=== PATIENT | male | born 1950 | race Caucasian/White ===

== ENCOUNTER → 2016-04-22 | Outpatient (CLI) | payer MEDICARE ==
[2016-04-22 08:27] LABS: Basophils # (A) 0.1 k/uL (0-0.2); Basophils % (A) 1 %; CH 29.6; Eosinophils # (A) 0.4 k/uL (0-0.7); Eosinophils % (A) 7 %; HDW 2.56; HGB 15.9 gm/dL (13.0-17.5); Luc # (Auto) 0.12; Luc % (Auto) 2; Lymphocytes # (A) 1.4 k/uL (1.0-4.8); Lymphocytes % (A) 23 %; MCH 28.7 pg (25.0-35.0); MCHC 31.8 g/dL (31.0-37.0); MCV 90.1 fL (80.0-100.0); Mean Platelet Volume 7.4; Monocytes # (A) 0.3 k/uL (0-1.0); Monocytes % (A) 5 %; Neutrophils # (A) 3.6 k/uL (1.3-7.7); Neutrophils % (A) 61 %; RBC 5.55 m/uL (4.30-5.90); RDW 13.2 % (11.5-15.5); WBC 5.9 k/uL (3.8-10.6); WBC (Perox) 5.81
[2016-04-22 09:25] LABS: ALT 39 U/L (21-72); AST 33 U/L (17-59); Alkaline Phosphatase 76 U/L (38-126); Anion Gap 10 mmol/L; Blood Urea Nitrogen 18 mg/dL (9-20); Calcium 9.3 mg/dL (8.4-10.2); Carbon Dioxide 28 mmol/L (22-30); Chloride 105 mmol/L (98-107); Cholesterol 190 mg/dL (<200); Glucose 100 mg/dL (74-99); HDL Cholesterol 54 mg/dL (40-60); Non-African American GFR(MDRD) >60 (>60 ml/min/1.73 sqM); Potassium 4.7 mmol/L (3.5-5.1); Sodium 143 mmol/L (137-145); Total Bilirubin 0.6 mg/dL (0.2-1.3); Triglycerides 85 mg/dL (<150)
== END | disposition home or self-care (01) ==
LOC: LABWHC1 07:58
PROVIDERS: ATTEND Family Medicine
DX: Z00.00 Encounter for general adult medical examination without abnormal findings (principal); G25.0 Essential tremor; I10 Essential (primary) hypertension; Z12.5 Encounter for screening for malignant neoplasm of prostate
CPT/HCPCS: 80061; 80053; 84443; 85025; 82306; 36415; G0103

== ENCOUNTER → 2017-04-24 | Outpatient (CLI) | payer MEDICARE ==
[2017-04-24 08:55] LABS: Basophils # (A) 0.1 k/uL (0-0.2); Basophils % (A) 1 %; Eosinophils # (A) 0.3 k/uL (0-0.7); Eosinophils % (A) 5 %; HGB 15.6 gm/dL (13.0-17.5); Lymphocytes # (A) 1.2 k/uL (1.0-4.8); Lymphocytes % (A) 20 %; MCH 28.5 pg (25.0-35.0); MCHC 32.4 g/dL (31.0-37.0); Mean Platelet Volume 7.1; Monocytes # (A) 0.3 k/uL (0-1.0); Monocytes % (A) 5 %; Neutrophils # (A) 4.1 k/uL (1.3-7.7); Neutrophils % (A) 67 %; Platelet Count 205 k/uL (150-450); RBC 5.46 m/uL (4.30-5.90); WBC 6.1 k/uL (3.8-10.6)
[2017-04-24 10:30] LABS: ALT 37 U/L (21-72); AST 35 U/L (17-59); Albumin 4.3 g/dL (3.5-5.0); Alkaline Phosphatase 87 U/L (38-126); Anion Gap 9 mmol/L; Blood Urea Nitrogen 22 mg/dL (9-20); Calcium 9.9 mg/dL (8.4-10.2); Carbon Dioxide 32 mmol/L (22-30); Chloride 105 mmol/L (98-107); Cholesterol 186 mg/dL (<200); Glucose 106 mg/dL (74-99); HDL Cholesterol 61 mg/dL (40-60); LDL Cholesterol,Calculated 112 mg/dL (0-99); Potassium 4.7 mmol/L (3.5-5.1); Sodium 146 mmol/L (137-145); Total Bilirubin 0.7 mg/dL (0.2-1.3); Total Protein 7.5 g/dL (6.3-8.2); Triglycerides 65 mg/dL (<150)
[2017-04-24 10:56] LABS: PSA Annual Screen 2.78 ng/mL (0.00-4.00)
== END | disposition home or self-care (01) ==
LOC: LABWHC1 08:15
PROVIDERS: ATTEND Family Medicine
DX: Z00.00 Encounter for general adult medical examination without abnormal findings (principal); G25.0 Essential tremor; I10 Essential (primary) hypertension; N52.9 Male erectile dysfunction, unspecified; Z12.5 Encounter for screening for malignant neoplasm of prostate
CPT/HCPCS: 80061; 80053; 84443; 85025; 82306; 36415; G0103

== ENCOUNTER → 2018-05-18 | Outpatient (CLI) | payer MEDICARE ==
[2018-05-18 08:38] LABS: Basophils # (A) 0.1 k/uL (0-0.2); Basophils % (A) 1 %; Eosinophils # (A) 0.5 k/uL (0-0.7); Eosinophils % (A) 9 %; HCT 48.7 % (39.0-53.0); HGB 15.6 gm/dL (13.0-17.5); Lymphocytes # (A) 1.2 k/uL (1.0-4.8); Lymphocytes % (A) 20 %; MCV 87.5 fL (80.0-100.0); Mean Platelet Volume 6.8; Monocytes # (A) 0.3 k/uL (0-1.0); Monocytes % (A) 6 %; Neutrophils # (A) 3.6 k/uL (1.3-7.7); Neutrophils % (A) 62 %; Platelet Count 176 k/uL (150-450); RBC 5.57 m/uL (4.30-5.90); RDW 13.5 % (11.5-15.5); WBC 5.8 k/uL (3.8-10.6)
[2018-05-18 16:29] LABS: Albumin 4.3 g/dL (3.80-4.90); Albumin/Globulin Ratio 1.59 (1.60-3.17); Anion Gap 7.3 mmol/L (4.00-12.00); Calcium 9.6 mg/dL (8.7-10.3); Carbon Dioxide 31.7 mmol/L (21.6-31.8); Globulin 2.7 g/dL (1.6-3.3); LDL Cholesterol,Calculated 123.6 mg/dL (0.0-131.0); Potassium 4.6 mmol/L (3.5-5.5); Total Bilirubin 0.6 mg/dL (0.3-1.2); VLDL Calculation 17.4 mg/dL (5.00-40.00)
== END | disposition home or self-care (01) ==
LOC: LABWHC1 08:02
PROVIDERS: ATTEND Family Medicine
DX: Z00.01 Encounter for general adult medical examination with abnormal findings (principal); K21.9 Gastro-esophageal reflux disease without esophagitis; N52.9 Male erectile dysfunction, unspecified; I10 Essential (primary) hypertension; G25.0 Essential tremor; Z13.29 Encounter for screening for other suspected endocrine disorder; Z12.5 Encounter for screening for malignant neoplasm of prostate
CPT/HCPCS: 36415; 80053; 80061; 82306; 84153; 85025

== ENCOUNTER → 2019-05-23 | Outpatient (CLI) | payer MEDICARE ==
[2019-05-23 08:16] LABS: Basophils % (A) 1 %; Eosinophils # (A) 0.5 k/uL (0-0.7); Eosinophils % (A) 7 %; HCT 47.9 % (39.0-53.0); HGB 15.4 gm/dL (13.0-17.5); Lymphocytes # (A) 1.4 k/uL (1.0-4.8); Lymphocytes % (A) 21 %; MCH 28.5 pg (25.0-35.0); MCHC 32.2 g/dL (31.0-37.0); MCV 88.4 fL (80.0-100.0); Mean Platelet Volume 7.4; Monocytes # (A) 0.4 k/uL (0-1.0); Monocytes % (A) 5 %; Neutrophils # (A) 4.4 k/uL (1.3-7.7); Neutrophils % (A) 65 %; Platelet Count 186 k/uL (150-450); RBC 5.42 m/uL (4.30-5.90); RDW 13.1 % (11.5-15.5); WBC 6.9 k/uL (3.8-10.6)
[2019-05-23 16:26] LABS: African American GFR (CKD) 89.2 (60.0-200.0); Albumin 4.4 g/dL (3.80-4.90); Albumin/Globulin Ratio 1.83 (1.60-3.17); Anion Gap 4.3 mmol/L (4.00-12.00); Calcium 9.3 mg/dL (8.7-10.3); Carbon Dioxide 33.7 mmol/L (21.6-31.8); Globulin 2.4 g/dL (1.6-3.3); Potassium 4.4 mmol/L (3.5-5.5); Total Bilirubin 0.5 mg/dL (0.3-1.2); Total Protein 6.8 g/dL (6.2-8.2)
== END | disposition home or self-care (01) ==
LOC: LABWHC1 07:52
PROVIDERS: ATTEND Family Medicine
DX: Z12.5 Encounter for screening for malignant neoplasm of prostate (principal); I10 Essential (primary) hypertension; M85.80 Other specified disorders of bone density and structure, unspecified site
CPT/HCPCS: 36415; 80053; 82306; 84153; 84154; 85025

== ENCOUNTER → 2019-06-05 | Outpatient (CLI) | payer MEDICARE ==
--- NOTE | 2019-06-05 16:01 | US ---
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 GLAND SIZE: Right Lobe: 4.6 x 1.6 x 1.6 cm Overall Parenchyma: homogenous Left Lobe: 4.6 x 1.1 x 1.3 cm Overall Parenchyma: homogeneous Isthmus Thickness: 0.4 cm NODULES RIGHT: # of nodules measured on right: 0 LEFT: # of nodules measured on left: 0 ISTHMUS: # of nodules measured in the isthmus: 0 Bilateral neck scanned, no evidence of lymphadenopathy. Thyroid echotexture is homogenous and symmetric. IMPRESSION: Thyroid size as described.
--- NOTE | 2019-06-05 20:36 | ECHOF ---
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 This was a technically adequate study. The left ventricular size is normal. There is moderate concentric left ventricular hypertrophy. O verall left ventricular systolic function is normal with, an EF between 55 - 60 %. The diastolic fi lling pattern is normal for the age of the patient 10.61. The right ventricle is mildly enlarged. Normal LA size by volume 22+/-6 ml/m2. The right atrial size is normal. Interatrial and interventricular septum intact. There is no evidence of aortic regurgitation. There is no evidence of aortic stenosis. There is trace mitral regurgitation. Mild tricuspid regurgitation present. There is no evidence of pulmonary hypertension. The right v entricular systolic pressure, as measured by Doppler, is 27.57mmHg. Trace/mild (physiologic) pulmonic regurgitation. The aortic root size is normal. IVC Not well visulized. There is no pericardial effusion. CONCLUSIONS -------- 1. Sinus rhythm. 2. This was a technically adequate study. 3. The left ventricular size is normal. 4. Overall left ventricular systolic function is normal with, an EF between 55 - 60 %. 5. The diastolic filling pattern is normal for the age of the patient 10.61 6. The right ventricle is mildly enlarged. 7. Normal LA size by volume 22+/-6 ml/m2. 8. The right atrial size is normal. 9. Interatrial and interventricular septum intact. 10. There is no evidence of aortic regurgitation. 11. There is no evidence of aortic stenosis. 12. There is trace mitral regurgitation. 13. Mild tricuspid regurgitation present. 14. There is no evidence of pulmonary hypertension. 15. The right ventricular systolic pressure, as measured by Doppler, is 27.57mmHg. 16. Trace/mild (physiologic) pulmonic regurgitation. 17. The aortic root size is normal. 18. IVC Not well visulized. 19. There is no pericardial effusion. [employer] TEACHER: Bev Zuñiga RDCS
== END | disposition home or self-care (01) ==
LOC: RADUSMAIN 14:53
PROVIDERS: ATTEND Family Medicine
DX: I07.1 Rheumatic tricuspid insufficiency (principal); E04.1 Nontoxic single thyroid nodule
CPT/HCPCS: 76536; 93306

== ENCOUNTER → 2019-07-03 | Outpatient (CLI) | payer MEDICARE ==
[2019-07-03 16:12] LABS: Chol/HDL Ratio 3.19
[2019-07-03 16:22] LABS: T4, Free (Free Thyroxine) 1.3 ng/dL (0.80-1.80)
== END | disposition home or self-care (01) ==
LOC: LABWHC1 07:28
PROVIDERS: ATTEND Family Medicine
DX: Z00.01 Encounter for general adult medical examination with abnormal findings (principal); Z12.11 Encounter for screening for malignant neoplasm of colon; I10 Essential (primary) hypertension; E04.1 Nontoxic single thyroid nodule; R97.20 Elevated prostate specific antigen [PSA]
CPT/HCPCS: 36415; 80061; 84153; 84154; 84439; 84443

== ENCOUNTER → 2020-01-21 | Outpatient (CLI) | payer MEDICARE | END | disposition home or self-care (01) | LOC: LABWHC1 09:36 | PROVIDERS: ATTEND Urology | DX: R97.20 Elevated prostate specific antigen [PSA] (principal) | CPT/HCPCS: 36415; 84153 ==

== ENCOUNTER → 2020-05-20 | Outpatient (CLI) | payer MEDICARE ==
[2020-05-20 11:17] LABS: Basophils # (A) 0.05 X 10*3/uL (0.00-0.10); Basophils % (A) 0.9 %; Eosinophils # (A) 0.42 X 10*3/uL (0.04-0.35); Eosinophils % (A) 7.2 %; HCT 47.8 % (39.6-50.0); HGB 15.9 g/dL (13.0-17.0); Lymphocytes # (A) 1.24 X 10*3/uL (0.90-5.00); Lymphocytes % (A) 21.3 %; MCH 29.1 pg (27.0-32.0); MCHC 33.3 g/dL (32.0-37.0); MCV 87.5 fL (80.0-97.0); Mean Platelet Volume 10.2 fL (9.5-12.2); Monocytes # (A) 0.39 X 10*3/uL (0.20-1.00); Monocytes % (A) 6.7 %; Neutrophils % (A) 63.6 %; Platelet Count 186 X 10*3/uL (140-440); RBC 5.46 X 10*6/uL (4.40-5.60); WBC 5.82 X 10*3/uL (4.50-10.00)
[2020-05-20 12:22] LABS: African American GFR (CKD) 100.6 (60.0-200.0); Albumin 4.6 g/dL (3.80-4.90); Albumin/Globulin Ratio 1.92 (1.60-3.17); Anion Gap 8.8 mmol/L (4.00-12.00); BUN/Creat Ratio 22.22 Ratio (12.00-20.00); Calcium 9.4 mg/dL (8.7-10.3); Carbon Dioxide 29.2 mmol/L (21.6-31.8); Chol/HDL Ratio 3.22; Globulin 2.4 g/dL (1.6-3.3); LDL Cholesterol,Calculated 119.2 mg/dL (0.0-131.0); Non-African American GFR(CKD) 86.8 (60.0-200.0); Potassium 4.5 mmol/L (3.5-5.5); Total Bilirubin 0.5 mg/dL (0.3-1.2); VLDL Calculation 13.8 mg/dL (5.00-40.00)
== END | disposition home or self-care (01) ==
LOC: LABWHC1 08:08
PROVIDERS: ATTEND Family Medicine
DX: I10 Essential (primary) hypertension (principal); M85.80 Other specified disorders of bone density and structure, unspecified site; Z12.5 Encounter for screening for malignant neoplasm of prostate; Z13.220 Encounter for screening for lipoid disorders
CPT/HCPCS: 36415; 80053; 80061; 82306; 85025

== ENCOUNTER → 2021-03-16 | Outpatient (CLI) | payer MEDICARE | END | disposition home or self-care (01) | LOC: LABWHC1 09:08 | PROVIDERS: ATTEND Urology | DX: R97.20 Elevated prostate specific antigen [PSA] (principal) | CPT/HCPCS: 36415; 84153 ==

== ENCOUNTER → 2022-03-29 | Outpatient (CLI) | payer MEDICARE | END | disposition home or self-care (01) | LOC: LABWHC1 10:42 | PROVIDERS: ATTEND Urology | DX: R97.20 Elevated prostate specific antigen [PSA] (principal) | CPT/HCPCS: 36415; 84153 ==

== ENCOUNTER → 2023-05-19 | Outpatient (CLI) | payer MEDICARE ==
[2023-05-19 13:20] LABS: Basophils # (A) 0.08 X 10*3/uL (0.00-0.10); Basophils % (A) 1.3 %; Eosinophils # (A) 0.44 X 10*3/uL (0.04-0.35); HCT 46.8 % (39.6-50.0); HGB 15.3 g/dL (13.0-17.0); Lymphocytes # (A) 1.23 X 10*3/uL (0.90-5.00); Lymphocytes % (A) 19.7 %; MCH 28.3 pg (27.0-32.0); MCHC 32.7 g/dL (32.0-37.0); MCV 86.7 FL (80.0-97.0); Mean Platelet Volume 10.4 FL (9.5-12.2); Monocytes # (A) 0.44 X 10*3/uL (0.20-1.00); NRBC Per 100 WBC 0 X 10*3/uL (0.00-0.01); Neutrophils # (A) 4.05 X 10*3/uL (1.80-7.70); Neutrophils % (A) 64.8 %; Platelet Count 201 X 10*3/uL (140-440); RDW 13.2 % (11.5-14.5); WBC 6.25 X 10*3/uL (4.50-10.00)
[2023-05-19 13:53] LABS: ALT 18 U/L (10-49); AST 29 U/L (14-35); Albumin 4.2 g/dL (3.8-4.9); Albumin/Globulin Ratio 1.62 Ratio (1.60-3.17); Alkaline Phosphatase 79 U/L (41-126); BUN/Creat Ratio 18.56 Ratio (12.00-20.00); Blood Urea Nitrogen 16.7 mg/dL (9.0-27.0); Calcium 9.7 mg/dL (8.7-10.3); Carbon Dioxide 27.1 mmol/L (21.6-31.8); Chloride 103 mmol/L (96-109); Globulin 2.6 g/dL (1.6-3.3); Glucose 104 mg/dL (70-110); LDL Cholesterol,Calculated 113.7 mg/dL (0.0-131.0); Potassium 4.5 mmol/L (3.5-5.5); Prostate Specific Antigen 4.39 ng/mL (0.000-6.500); Sodium 140 mmol/L (135-145); T4, Free (Free Thyroxine) 1.35 ng/dL (0.80-1.80); Total Bilirubin 0.5 mg/dL (0.3-1.2); Total Protein 6.8 g/dL (6.2-8.2); VLDL Calculation 12.88 mg/dL (5.00-40.00)
== END | disposition home or self-care (01) ==
LOC: LABWHC1 08:15
PROVIDERS: ATTEND Family Medicine
DX: Z00.00 Encounter for general adult medical examination without abnormal findings (principal); I10 Essential (primary) hypertension; K21.9 Gastro-esophageal reflux disease without esophagitis; N40.0 Benign prostatic hyperplasia without lower urinary tract symptoms; R97.20 Elevated prostate specific antigen [PSA]
CPT/HCPCS: 36415; 80053; 80061; 82306; 83036; 84153; 84439; 84443; 85025

== ENCOUNTER → 2024-04-11 | Outpatient (CLI) | payer MEDICARE ==
[2024-04-11 15:27] LABS: Basophils # (A) 0.05 X 10*3/uL (0.00-0.10); Basophils % (A) 0.7 %; Eosinophils # (A) 0.24 X 10*3/uL (0.04-0.35); Eosinophils % (A) 3.6 %; HCT 45.8 % (39.6-50.0); HGB 15.1 g/dL (13.0-17.0); Lymphocytes # (A) 1.41 X 10*3/uL (0.90-5.00); Lymphocytes % (A) 21.1 %; MCH 28.7 pg (27.0-32.0); MCV 86.9 FL (80.0-97.0); Mean Platelet Volume 10.1 FL (9.5-12.2); Monocytes # (A) 0.54 X 10*3/uL (0.20-1.00); Monocytes % (A) 8.1 %; NRBC Per 100 WBC 0 X 10*3/uL (0.00-0.01); Neutrophils # (A) 4.43 X 10*3/uL (1.80-7.70); Neutrophils % (A) 66.4 %; Platelet Count 196 X 10*3/uL (140-440); RBC 5.27 X 10*6/uL (4.40-5.60); RDW 13.5 % (11.5-14.5); WBC 6.68 X 10*3/uL (4.50-10.00)
[2024-04-11 16:13] LABS: Chol/HDL Ratio 3.47 Ratio; LDL Cholesterol,Calculated 128.2 mg/dL (0.0-131.0)
[2024-04-11 16:14] LABS: ALT 23 U/L (10-49); AST 29 U/L (14-35); Albumin 4.3 g/dL (3.8-4.9); Albumin/Globulin Ratio 1.65 Ratio (1.60-3.17); Alkaline Phosphatase 75 U/L (41-126); Calcium 9.4 mg/dL (8.7-10.3); Carbon Dioxide 29.1 mmol/L (21.6-31.8); Chloride 106 mmol/L (96-109); Globulin 2.6 g/dL (1.6-3.3); Glucose 86 mg/dL (70-110); Potassium 4.2 mmol/L (3.5-5.5); Sodium 145 mmol/L (135-145); T4, Free (Free Thyroxine) 1.12 ng/dL (0.80-1.80); Total Bilirubin 0.4 mg/dL (0.3-1.2); Total Protein 6.9 g/dL (6.2-8.2)
== END | disposition home or self-care (01) ==
LOC: LABWHC1 08:32
PROVIDERS: ATTEND Family Medicine
DX: Z00.00 Encounter for general adult medical examination without abnormal findings (principal); I10 Essential (primary) hypertension; E55.9 Vitamin D deficiency, unspecified; K21.9 Gastro-esophageal reflux disease without esophagitis
CPT/HCPCS: 36415; 80053; 80061; 82306; 83036; 84439; 84443; 85025

== ENCOUNTER 2024-08-03 21:52 | Observation (INO) | payer MEDICARE ==
--- NOTE | 2024-08-03 22:26 | ED ---
GI Bleed HPI - General Chief complaint: GI Bleed Stated complaint: GI bleed Time Seen by Provider: 08/03/24 22:03 Source: patient, RN notes reviewed Mode of arrival: ambulatory Limitations: no limitations - History of Present Illness Initial comments: This is a 73-year-old male with history of prostate disorder, GERD and hypertension presenting for rectal bleeding x 1 hour. Patient states he was relaxing at home when he suddenly felt a warm fluid from his rectum, discovering he passed a large amount of red blood with ongoing bleeding upon arrival at ER. Patient denies use of blood thinners, only occasionally uses naproxen as needed. Endorses receiving colonoscopy in 2020 without abnormal findings. Denies fever, chills, dizziness, altered LOC, chest pain, dyspnea, abdominal pain, N/V/D, urinary symptoms. Denies history or known cause of rectal bleeding occurring today. MD complaint: gross hematochezia Onset/Timin -: hour(s) Time: 20:45 Quality: painless Consistency: constant Associated Symptoms: denies other symptoms Treatments Prior to Arrival: none - Related Data Allergies Allergy/AdvReac Type Severity Reaction Status Date / Time Sulfa (Sulfonamide Allergy Anaphylaxis Verified 08/03/24 21:58 Antibiotics) Review of Systems ROS Statement: Those systems with pertinent positive or pertinent negative responses have been documented in the HPI. ROS Other: All systems not noted in ROS Statement are negative. Past Medical History Past Medical History: GERD/Reflux, Hypertension, Prostate Disorder Additional Past Medical History / Comment(s): arthritis History of Any Multi-Drug Resistant Organisms: None Reported Past Surgical History: Joint Replacement, Orthopedic Surgery Additional Past Surgical History / Comment(s): Bilateral knee replacement Past Psychological History: No Psychological Hx Reported Smoking Status: Never smoker Past Alcohol Use History: None Reported Past Drug Use History: None Reported General Exam Limitations: no limitations General appearance: alert, in no apparent distress Head exam: Present: atraumatic, normocephalic, normal inspection Eye exam: Present: normal appearance, PERRL, EOMI. Absent: scleral icterus, conjunctival injection, periorbital swelling ENT exam: Present: normal exam, mucous membranes moist Neck exam: Present: normal inspection. Absent: tenderness, meningismus, lymphadenopathy Respiratory exam: Present: normal lung sounds bilaterally. Absent: respiratory distress, wheezes, rales, rhonchi, stridor Cardiovascular Exam: Present: regular rate, normal rhythm, normal heart sounds. Absent: systolic murmur, diastolic murmur, rubs, gallop, clicks GI/Abdominal exam: Present: soft, normal bowel sounds. Absent: distended, tenderness, guarding, rebound, rigid Rectal exam: Present: decreased rectal tone, heme (+) stool, bloody stool. Ab sent: hemorrhoids, tenderness, normal prostate Extremities exam: Present: normal inspection, full ROM, normal capillary refill. Absent: tenderness, pedal edema, joint swelling, calf tenderness Back exam: Present: normal inspection Neurological exam: Present: alert, oriented X3, CN II-XII intact Psychiatric exam: Present: normal affect, normal mood Skin exam: Present: warm, dry, intact, normal color. Absent: rash Course Vital Signs 08/03/24 08/04/24 08/04/24 21:54 00:13 02:45 Temperature 98.2 F Pulse Rate 98 78 61 Respiratory 18 16 18 Rate Blood Pressure 150/82 133/85 162/81 O2 Sat by Pulse 96 99 98 Oximetry Medical Decision Making - Medical Decision Making Was pt. sent in by a medical professional or institution (, PA, DEPUTY CONTROLLER, urgent care, hospital, or prison...) When possible be specific @ -No Did you speak to anyone other than the patient for history (EMS, parent, family, police, friend...)? What history was obtained from this source @ - provided a portion of HPI Did you review nursing and triage notes (agree or disagree)? Why? @ -I reviewed and agree with nursing and triage notes Were old charts reviewed (outside hosp., previous admission, EMS record, old EKG, old radiological studies, urgent care reports/EKG's, prison records)? Report findings @ -No old charts were reviewed Differential Diagnosis (chest pain, altered mental status, abdominal pain women, abdominal pain men, vaginal bleeding, weakness, fever, dyspnea, syncope, headache, dizziness, GI bleed, back pain, seizure, CVA, palpatations, mental health, musculoskeletal)? @ -Differential GI Bleed: Esophageal varices, aortoenteric fistula, Lia-Arzate, gastritis, peptic ulcer disease, diverticulosis, inflammatory bowel disease, hemorrhoids, fissure, colitis, malignancy, Meckel's diverticulum, this is not meant to be an all- inclusive list. EKG interpreted by me (3pts min.). @ -Not done X-rays interpreted by me (1pt min.). @ -None done CT interpreted by me (1pt min.). @ -Abdomen CTA shows no indication of active hemorrhage U/S interpreted by me (1pt. min.). @ -None done What testing was considered but not performed or refused? (CT, X-rays, U/S, labs)? Why? @ -None What meds were considered but not given or refused? Why? @ -None Did you discuss the management of the patient with other professionals (professionals i.e. Dr., PA, DEPUTY CONTROLLER, lab, RT, psych nurse, elementary school social worker, product development, teacher, account officer, catalytic case operator)? Give summary @ -No Was smoking cessation discussed for >3mins.? @ -No Was critical care preformed (if so, how long)? @ -No Were there social determinants of health that impacted care today? How? (Homelessness, low income, unemployed, alcoholism, drug addiction, transportation, low edu. Level, literacy, decrease access to med. care, custodial, rehab)? @ -No Was there de-escalation of care discussed even if they declined (Discuss DNR or withdrawal of care, Hospice)? DNR status @ -No What co-morbidities impacted this encounter? (DM, HTN, Smoking, COPD, CAD, Cancer, CVA, ARF, Chemo, Hep., AIDS, mental health diagnosis, sleep apnea, morbid obesity)? @ -None Was patient admitted / discharged? Hospital course, mention meds given and route, prescriptions, significant lab abnormalities, going to OR and other pertinent info. @ -Lab work shows hemoglobin 14.3, hyperglycemia 182 with normal lactic acid and positive stool occult blood. Abdomen/pelvic CTA is unremarkable no indication of active hemorrhage. Patient provided IV LR. Spoke to Dr. Kuhn from [facility] for obs admission, advising consult to Dr. Gutierrez. Discussed patient with Dr. Bhatia. Undiagnosed new problem with uncertain prognosis? @ -Hematochezia Drug Therapy requiring intensive monitoring for toxicity (Heparin, Nitro, Insu shahab, Cardizem)? @ -No Were any procedures done? @ -No Diagnosis/symptom? @ -Hematochezia Acute, or Chronic, or Acute on Chronic? @ -Acute Uncomplicated (without systemic symptoms) or Complicated (systemic symptoms)? @ -Uncomplicated Side effects of treatment? @ -No Exacerbation, Progression, or Severe Exacerbation? @ -No Poses a threat to life or bodily function? How? (Chest pain, USA, CT, pneumonia, PE, COPD, DKA, ARF, appy, cholecystitis, CVA, Diverticulitis, Homicidal, Suicidal, threat to staff... and all critical care pts) @ -Hematochezia, exsanguination - Lab Data Result diagrams: 08/03/24 22:20 08/03/24 22:20 Lab Results 08/03/24 08/03/24 08/03/24 Range/Units 22:15 22:20 22:20 WBC 5.95 (4.50-10.00) 10*3/uL RBC 4.89 (4.40-5.60) 10*6/uL Hgb 14.3 (13.0-17.0) g/dL Hct 42.3 (39.6-50.0) % MCV 86.5 (80.0-97.0) fL MCH 29.2 (27.0-32.0) pg MCHC 33.8 (32.0-37.0) g/dL Plt Count 193 (140-440) 10*3/uL MPV 10.1 (9.5-12.2) fL Immature Gran % (Auto) 0.3 % Neutrophils % 56.2 % Lymphocytes % 26.4 % Monocytes % 8.2 % Eosinophils % 7.9 % Basophils % 1.0 % Immature Gran # 0.02 (0.00-0.04) 10*3/uL Neutrophils # 3.34 (1.80-7.70) 10*3/uL Lymphocytes # 1.57 (0.90-5.00) 10*3/uL Monocytes # 0.49 (0.20-1.00) 10*3/uL Eosinophils # 0.47 H (0.04-0.35) 10*3/uL Basophils # 0.06 (0.00-0.10) 10*3/uL PT (10.0-12.5) sec INR (<1.2) APTT (22.0-30.0) sec Sodium (137-145) mmol/L Potassium (3.5-5.1) mmol/L Chloride (98-107) mmol/L Carbon Dioxide (22-30) mmol/L Anion Gap mmol/L BUN (9-20) mg/dL Creatinine (0.66-1.25) mg/dL Est GFR (CKD-EPI)AfAm (>60 ml/min/1.73 sqM) Est GFR (CKD-EPI)NonAf (>60 ml/min/1.73 sqM) Glucose (74-99) mg/dL Plasma Lactic Acid David (0.7-2.0) mmol/L Calcium (8.4-10.2) mg/dL Total Bilirubin (0.2-1.3) mg/dL AST (17-59) U/L ALT (4-49) U/L Alkaline Phosphatase (38-126) U/L Total Protein (6.3-8.2) g/dL Albumin (3.5-5.0) g/dL Stool Occult Blood Positive (Negative) Blood Type O Positive Blood Type Confirm Blood Type Recheck No Previous Record Bld Type Recheck Status CABO Indicated Antibody Screen NEGATIVE Spec Expiration Date 08/06/2024 - 231408/03/24 08/03/24 08/03/24 Range/Units 22:20 22:20 23:35 WBC (4.50-10.00) 10*3/uL RBC (4.40-5.60) 10*6/uL Hgb (13.0-17.0) g/dL Hct (39.6-50.0) % MCV (80.0-97.0) fL MCH (27.0-32.0) pg MCHC (32.0-37.0) g/dL Plt Count (140-440) 10*3/uL MPV (9.5-12.2) fL Immature Gran % (Auto) % Neutrophils % % Lymphocytes % % Monocytes % % Eosinophils % % Basophils % % Immature Gran # (0.00-0.04) 10*3/uL Neutrophils # (1.80-7.70) 10*3/uL Lymphocytes # (0.90-5.00) 10*3/uL Monocytes # (0.20-1.00) 10*3/uL Eosinophils # (0.04-0.35) 10*3/uL Basophils # (0.00-0.10) 10*3/uL PT 10.7 (10.0-12.5) sec INR 1.0 (<1.2) APTT 22.9 (22.0-30.0) sec Sodium 140 (137-145) mmol/L Potassium 3.7 (3.5-5.1) mmol/L Chloride 105 (98-107) mmol/L Carbon Dioxide 24 (22-30) mmol/L Anion Gap 11 mmol/L BUN 20 (9-20) mg/dL Creatinine 0.90 (0.66-1.25) mg/dL Est GFR (CKD-EPI)AfAm >90 (>60 ml/min/1.73 sqM) Est GFR (CKD-EPI)NonAf 84 (>60 ml/min/1.73 sqM) Glucose 182 H (74-99) mg/dL Plasma Lactic Acid David 1.5 (0.7-2.0) mmol/L Calcium 9.7 (8.4-10.2) mg/dL Total Bilirubin 0.4 (0.2-1.3) mg/dL AST 35 (17-59) U/L ALT 29 (4-49) U/L Alkaline Phosphatase 83 (38-126) U/L Total Protein 6.8 (6.3-8.2) g/dL Albumin 4.0 (3.5-5.0) g/dL Stool Occult Blood (Negative) Blood Type Blood Type Confirm Blood Type Recheck Bld Type Recheck Status Antibody Screen Spec Expiration Date 08/03/24 Range/Units 23:46 WBC (4.50-10.00) 10*3/uL RBC (4.40-5.60) 10*6/uL Hgb (13.0-17.0) g/dL Hct (39.6-50.0) % MCV (80.0-97.0) fL MCH (27.0-32.0) pg MCHC (32.0-37.0) g/dL Plt Count (140-440) 10*3/uL MPV (9.5-12.2) fL Immature Gran % (Auto) % Neutrophils % % Lymphocytes % % Monocytes % % Eosinophils % % Basophils % % Immature Gran # (0.00-0.04) 10*3/uL Neutrophils # (1.80-7.70) 10*3/uL Lymphocytes # (0.90-5.00) 10*3/uL Monocytes # (0.20-1.00) 10*3/uL Eosinophils # (0.04-0.35) 10*3/uL Basophils # (0.00-0.10) 10*3/uL PT (10.0-12.5) sec INR (<1.2) APTT (22.0-30.0) sec Sodium (137-145) mmol/L Potassium (3.5-5.1) mmol/L Chloride (98-107) mmol/L Carbon Dioxide (22-30) mmol/L Anion Gap mmol/L BUN (9-20) mg/dL Creatinine (0.66-1.25) mg/dL Est GFR (CKD-EPI)AfAm (>60 ml/min/1.73 sqM) Est GFR (CKD-EPI)NonAf (>60 ml/min/1.73 sqM) Glucose (74-99) mg/dL Plasma Lactic Acid David (0.7-2.0) mmol/L Calcium (8.4-10.2) mg/dL Total Bilirubin (0.2-1.3) mg/dL AST (17-59) U/L ALT (4-49) U/L Alkaline Phosphatase (38-126) U/L Total Protein (6.3-8.2) g/dL Albumin (3.5-5.0) g/dL Stool Occult Blood (Negative) Blood Type Blood Type Confirm O Positive Blood Type Recheck Bld Type Recheck Status Antibody Screen Spec Expiration Date Disposition Clinical Impression: Hematochezia Disposition: ADMITTED IP TO THIS [facility] Condition: Good Is patient prescribed a controlled substance at d/c from ED?: No Time of Disposition: 02: Decision Date: 08/04/24 Decision Time: 02:30
[2024-08-03 22:38] LABS: Basophils # (A) 0.06 10*3/uL (0.00-0.10); Eosinophils # (A) 0.47 10*3/uL (0.04-0.35); Eosinophils % (A) 7.9 %; HCT 42.3 % (39.6-50.0); HGB 14.3 g/dL (13.0-17.0); Lymphocytes # (A) 1.57 10*3/uL (0.90-5.00); Lymphocytes % (A) 26.4 %; MCH 29.2 pg (27.0-32.0); MCHC 33.8 g/dL (32.0-37.0); MCV 86.5 fL (80.0-97.0); Mean Platelet Volume 10.1 fL (9.5-12.2); Monocytes # (A) 0.49 10*3/uL (0.20-1.00); Monocytes % (A) 8.2 %; Neutrophils # (A) 3.34 10*3/uL (1.80-7.70); Neutrophils % (A) 56.2 %; Platelet Count 193 10*3/uL (140-440); RBC 4.89 10*6/uL (4.40-5.60); RDW 13.2 % (11.5-14.5); WBC 5.95 10*3/uL (4.50-10.00)
[2024-08-03 23:09] LABS: Partial Thromboplastin Time 22.9 sec (22.0-30.0); Prothrombin Time 10.7 sec (10.0-12.5)
[2024-08-03 23:18] LABS: Chloride 105 mmol/L (98-107); Glucose 182 mg/dL (74-99); Potassium 3.7 mmol/L (3.5-5.1); Sodium 140 mmol/L (137-145); Total Protein 6.8 g/dL (6.3-8.2)
[2024-08-03 23:19] LABS: ALT 29 U/L (4-49); AST 35 U/L (17-59); African American GFR (CKD) >90 (>60 ml/min/1.73 sqM); Alkaline Phosphatase 83 U/L (38-126); Anion Gap 11 mmol/L; Blood Urea Nitrogen 20 mg/dL (9-20); Calcium 9.7 mg/dL (8.4-10.2); Carbon Dioxide 24 mmol/L (22-30); Non-African American GFR(CKD) 84 (>60 ml/min/1.73 sqM); Total Bilirubin 0.4 mg/dL (0.2-1.3)
[2024-08-04] MEDS: LACTATED RINGERS 500 ML IV ONE (01:36)
--- NOTE | 2024-08-04 02:07 | CT ---
EXAM: CT Angiography Abdomen and Pelvis With Intravenous Contrast CLINICAL HISTORY: Rectal bleeding TECHNIQUE: Axial computed tomographic angiography images of the abdomen and pelvis with intravenous contrast. CTDI is 42 mGy and DLP is 1815 mGy-cm. This CT exam was performed using one or more of the following dose reduction techniques: automated exposure control, adjustment of the mA and/or kV according to patient size, and/or use of iterative reconstruction technique. 3D and MIP reconstructed images were created and reviewed. COMPARISON: No relevant prior studies available. FINDINGS: VASCULATURE: Aorta: No acute abnormality. No abdominal aortic aneurysm. No dissection. Celiac trunk and mesenteric arteries: No acute abnormality. No occlusion or significant stenosis. Renal arteries: No acute abnormality. No occlusion or significant stenosis. Iliac arteries: No acute abnormality. No occlusion or significant stenosis. Lung bases: Right basilar peripheral lung cyst. No mass. No consolidation. ABDOMEN: Liver: Unremarkable. No mass. Gallbladder and bile ducts: Unremarkable. No calcified stones. No ductal dilation. Pancreas: Unremarkable. No ductal dilation. No mass. Spleen: Unremarkable. No splenomegaly. Adrenals: Unremarkable. No mass. Kidneys and ureters: Unremarkable. No hydronephrosis. No solid mass. Stomach and bowel: Small hiatal hernia. No bowel obstruction or ileus. Abundant stool throughout the colon. Sigmoid colon diverticuli without evidence for acute diverticulitis. No perirectal infiltration or collection. No contrast extravasation into bowel including on delayed images. PELVIS: Appendix: No findings to suggest acute appendicitis. Bladder: Well distended. No mass. Reproductive: Prominent prostate gland 4.6 x 5.9 cm. ABDOMEN and PELVIS: Intraperitoneal space: Unremarkable. No significant fluid collection. No free air. Bones/joints: No acute fracture. Degenerative changes of the spine. Soft tissues: Unremarkable. Lymph nodes: Unremarkable. No enlarged lymph nodes. IMPRESSION: Unremarkable CT angiogram of the abdomen and pelvis. No contrast extravasation within bowel to indicate active hemorrhage. No perirectal infiltration or collection. Sigmoid colon diverticulosis without evidence for acute diverticulitis. Abundant stool throughout the colon. Senescent changes.
[2024-08-04] MEDS ORDERED: ONDANSETRON 4 MG/2 ML VIAL IVP PRN (02:28)
[2024-08-04] MEDS ORDERED: HYDROmorphone 0.5 MG/0.5 ML SYRINGE IVP PRN (02:28)
[2024-08-04] MEDS ORDERED: NALOXONE 0.4 MG/ML 1 ML VIAL IV PRN (02:28)
[2024-08-04] MEDS ORDERED: ACETAMINOPHEN TAB 325 MG TAB PO PRN (02:28)
[2024-08-04 10:13] LABS: HCT 40.7 % (39.6-50.0); HGB 13.5 g/dL (13.0-17.0); MCH 29.3 pg (27.0-32.0); MCHC 33.2 g/dL (32.0-37.0); MCV 88.3 fL (80.0-97.0); Mean Platelet Volume 10.1 fL (9.5-12.2); Platelet Count 176 10*3/uL (140-440); RBC 4.61 10*6/uL (4.40-5.60); RDW 13.4 % (11.5-14.5); WBC 5.61 10*3/uL (4.50-10.00)
--- NOTE | 2024-08-04 10:22 | P.GSCN ---
History of Present Illness Consult date: 08/04/24 History of present illness: CHIEF COMPLAINT: GI bleed HISTORY OF PRESENT ILLNESS: This is a 73-year-old male who presented to the hospital with bright red blood per rectum. Patient reports he started having blood from the rectum around 9 PM last night. Initially he thought he just needed to pass gas but there but dark purple liquid noted. And he reported in the toilet there has bright red blood. He reports spending about an hour on the toilet continuing passing bright red blood. He also had passed blood clots. He denies any abdominal pain. He came into the ER and had a couple more episodes of bleeding. He reports the bleeding did stop around 1 AM. He does have a history of diverticulosis. He reports no constipation. He does report having some stool incontinence. Last colonoscopy was in 2020 patient reports that there were normal findings. Colonoscopy was completed by Dr. Hyde. He did report last night he had some lower abdominal crampy intermittent discomfort lower abdomen. This has resolved. CTA of the abdomen head that reported no co ntrast extravasation within the bowel to indicate active hemorrhage. Sigmoid colon diverticulosis without diverticulitis. Abundant stool throughout the colon. Patient denies being on blood thinners. He does take Aleve twice a day. Hemoglobin on admission was 14. Stool for occult blood was positive. PAST MEDICAL HISTORY: See below PAST SURGICAL HISTORY: See below MEDICATIONS: See below ALLERGIES: See below SOCIAL HISTORY: No illicit drug use. REVIEW OF SYSTEMS: CONSTITUTIONAL: Denies fever or chills. HEENT: Denies blurred vision, vision changes, or eye pain. Denies hemoptysis CARDIOVASCULAR: Denies chest pain or pressure. RESPIRATORY: No shortness of breath. GASTROINTESTINAL: See HPI for pertinent findings HEMATOLOGIC: Denies bleeding disorders. GENITOURINARY: Denies any blood in urine or increased urinary frequency. SKIN: Denies pruitis. Denies rash. PHYSICAL EXAM: VITAL SIGNS: Reviewed GENERAL: Well-developed in no acute distress. HEENT: No sclera icterus. Extraocular movements grossly intact. Moist buccal mucosa. Head is atraumatic, normocephalic. No nasal drainage. ABDOMEN: Soft. Nondistended. Nontender. NEUROLOGIC: Alert and oriented. Cranial nerves II through XII grossly intact. LABORATORY DATA: WBC 5.61 Hgb 14.3 repeat Hgb 13.5 PLT 176 INR 1.0 Sodium 140 potassium 3.7 creatinine 0.90 Lactic acid 1.5 Stool for occult blood positive IMAGING: CT scan abdomen pelvis reports unremarkable CT angiogram of the abdomen pelvis. No contrast extravasation within the bowel to indicate active hemorrhage. No perirectal infiltration or collection. Sigmoid colon diverticulosis without diverticulitis. Abundant stool throughout the colon. ASSESSMENT: 1. Acute GI bleed with bright red blood per rectum 2. History of diverticulosis PLAN: - Patient scheduled for colonoscopy tomorrow with Dr. Montalvo - Start bowel prep today with Nulytely, lactulose and milk of mag - Clear liquid diet today - N.p.o. after midnight Physician Slubber Tender note has been reviewed by physician. Signing provider agrees with the documented findings, assessment, and plan of care. I have personally seen and examined the patient, reviewed the FOOD WRITER /PAs history, exam and MDM and agree with the assessment and plan as written. Based on total visit time, I have performed more than 50% of the visit. As above: Patient presents with acute suspected lower GI bleed that began yesterday evening around 9 PM. No bleeding this morning yet. Patient with history of diverticulosis. Will proceed with upper and lower endoscopy tomorrow. Past Medical History Past Medical History: GERD/Reflux, Hypertension, Prostate Disorder Additional Past Medical History / Comment(s): arthritis History of Any Multi-Drug Resistant Organisms: None Reported Past Surgical History: Joint Replacement, Orthopedic Surgery Additional Past Surgical History / Comment(s): Bilateral knee replacement Past Psychological History: No Psychological Hx Reported Smoking Status: Never smoker Past Alcohol Use History: None Reported Past Drug Use History: None Reported Medications and Allergies Home Medications Medication Instructions Recorded Confirmed Type Calcium Citrate/Vitamin D3 1 tab PO W/SUPPER 08/04/24 08/04/24 History [Citracal + D Maximum Caplet] Fexofenadine HCl [Patria Allergy] 180 mg PO DAILY 08/04/24 08/04/24 History Multivitamins, Thera [Multivitamin 1 tab PO DAILY 08/04/24 08/04/24 History (formulary)] Naproxen Sodium [Aleve] 440 mg PO BID 08/04/24 08/04/24 History [place]-3/Dha/Epa/Fish Oil [Fish Oil 1 cap PO DAILY 08/04/24 08/04/24 History 1,000 mg Softgel] Omeprazole [PriLOSEC] 20 mg PO Q2D 08/04/24 08/04/24 History Saw/Vit E/Sod Merary/Lyc/Beta/Pyg 1 tab PO DAILY 08/04/24 08/04/24 History [Prostate Health Caplet] amLODIPine [Norvasc] 10 mg PO DAILY 08/04/24 08/04/24 History Allergies Allergy/AdvReac Type Severity Reaction Status Date / Time Sulfa (Sulfonamide Allergy Anaphylaxis Verified 08/04/24 08:33 Antibiotics) Surgical - Exam Vital Signs Temp Pulse Resp BP Pulse Ox 98.2 F 98 18 150/82 96 08/03/24 21:54 08/03/24 21:54 08/03/24 21:54 08/03/24 21:54 08/03/24 21:54 Results - Labs 08/04/24 09:52 08/03/24 22:20 Abnormal Lab Results - Last 24 Hours (Table) 08/03/24 08/03/24 Range/Units 22:20 22:20 Eosinophils # 0.47 H (0.04-0.35) 10*3/uL Glucose 182 H (74-99) mg/dL Diabetes panel 08/03/24 Range/Units 22:20 Sodium 140 (137-145) mmol/L Potassium 3.7 (3.5-5.1) mmol/L Chloride 105 (98-107) mmol/L Carbon Dioxide 24 (22-30) mmol/L BUN 20 (9-20) mg/dL Creatinine 0.90 (0.66-1.25) mg/dL Glucose 182 H (74-99) mg/dL Calcium 9.7 (8.4-10.2) mg/dL AST 35 (17-59) U/L ALT 29 (4-49) U/L Alkaline Phosphatase 83 (38-126) U/L Total Protein 6.8 (6.3-8.2) g/dL Albumin 4.0 (3.5-5.0) g/dL Calcium panel 08/03/24 Range/Units 22:20 Calcium 9.7 (8.4-10.2) mg/dL Albumin 4.0 (3.5-5.0) g/dL Pituitary panel 08/03/24 Range/Units 22:20 Sodium 140 (137-145) mmol/L Potassium 3.7 (3.5-5.1) mmol/L Chloride 105 (98-107) mmol/L Carbon Dioxide 24 (22-30) mmol/L BUN 20 (9-20) mg/dL Creatinine 0.90 (0.66-1.25) mg/dL Glucose 182 H (74-99) mg/dL Calcium 9.7 (8.4-10.2) mg/dL Adrenal panel 08/03/24 Range/Units 22:20 Sodium 140 (137-145) mmol/L Potassium 3.7 (3.5-5.1) mmol/L Chloride 105 (98-107) mmol/L Carbon Dioxide 24 (22-30) mmol/L BUN 20 (9-20) mg/dL Creatinine 0.90 (0.66-1.25) mg/dL Glucose 182 H (74-99) mg/dL Calcium 9.7 (8.4-10.2) mg/dL Total Bilirubin 0.4 (0.2-1.3) mg/dL AST 35 (17-59) U/L ALT 29 (4-49) U/L Alkaline Phosphatase 83 (38-126) U/L Total Protein 6.8 (6.3-8.2) g/dL Albumin 4.0 (3.5-5.0) g/dL
[2024-08-04] MEDS: PEG 3350 (420 GM/BTL) + LYTES 4,000 ML BOTTLE PO ONE (12:03)
[2024-08-04] MEDS: MAGNESIUM HYDROXIDE 2,400 MG/30 ML CUP PO STA (12:03)
[2024-08-04] MEDS: LACTULOSE 20 GM/30 ML CUP PO ONE (12:04)
[2024-08-04] MEDS: SODIUM CHLORIDE 0.9% 1,000 ML IV SCH (12:12)
[2024-08-05 07:44] LABS: HCT 38.6 % (39.6-50.0); HGB 12.9 g/dL (13.0-17.0); MCHC 33.4 g/dL (32.0-37.0); MCV 86.7 fL (80.0-97.0); Mean Platelet Volume 10.2 fL (9.5-12.2); Platelet Count 168 10*3/uL (140-440); RBC 4.45 10*6/uL (4.40-5.60); RDW 13.2 % (11.5-14.5); WBC 6.15 10*3/uL (4.50-10.00)
[2024-08-05 08:11] LABS: African American GFR (CKD) >90 (>60 ml/min/1.73 sqM); Anion Gap 7 mmol/L; Blood Urea Nitrogen 14 mg/dL (9-20); Calcium 8.6 mg/dL (8.4-10.2); Carbon Dioxide 27 mmol/L (22-30); Chloride 106 mmol/L (98-107); Glucose 80 mg/dL (74-99); Non-African American GFR(CKD) 89 (>60 ml/min/1.73 sqM); Potassium 3.8 mmol/L (3.5-5.1); Sodium 140 mmol/L (137-145)
--- NOTE | 2024-08-05 10:41 | P.HPIM ---
History of Present Illness H&P Date: 08/05/24 Chief Complaint: Rectal bleeding History and Physical and Discharge Summary: This is a pleasant 73-year-old gentleman with past medical history significant for diverticulosis,gastroesophageal reflux disease, hypertension, prostate disorder, arthritis and multiple other medical issues presented to the ER with rectal bleeding that started in the evening on Sunday. Reports bright red rectal bleeding with clots, lasting about an hour. Denies abdominal cramping or pain. denies chest pain, palpitations or shortness of breath. Reports some stool incontinence, denies constipation. denies being on blood thinners. Discloses he does take NSAIDs/Aleve twice a day with PPI every other day secondary to occasional loose stools. Completed colonoscopy with Dr. Montalvo in 2020, which he reports was normal. Abdomen/pelvis CTA reported unremarkable -no contrast extravasation within the bowel to indicate active hemorrhage. No perirectal infiltration or collection. Sigmoid colon diverticulosis without diverticulitis. Abundant stool throughout the colon. Stool for occult blood positive. Hemoglobin on admission 14. Repeat hemoglobin 12.9 this morning. INR 1. Electrolytes,renal function within normal limits. afebrile, normal WBC, lactic acid 1.5. Review of Systems ROS Statement: Those systems with pertinent positive or pertinent negative responses have been documented in the HPI. ROS Other: All systems not noted in ROS Statement are negative. Past Medical History Past Medical History: GERD/Reflux, Hypertension, Prostate Disorder Additional Past Medical History / Comment(s): arthritis History of Any Multi-Drug Resistant Organisms: None Reported Past Surgical History: Joint Replacement, Orthopedic Surgery Additional Past Surgical History / Comment(s): Bilateral knee replacement - 2013 Past Psychological History: No Psychological Hx Reported Smoking Status: Never smoker Past Alcohol Use History: None Reported Past Drug Use History: None Reported - Past Family History Father Family Medical History: Hyperlipidemia, Hypertension Mother Family Medical History: AICD/Pacemaker, Hyperlipidemia, Hypertension Medications and Allergies Home Medications Medication Instructions Recorded Confirmed Type Calcium Citrate/Vitamin D3 1 tab PO W/SUPPER 08/04/24 08/04/24 History [Citracal + D Maximum Caplet] Fexofenadine HCl [Patria Allergy] 180 mg PO DAILY 08/04/24 08/04/24 History Multivitamins, Thera [Multivitamin 1 tab PO DAILY 08/04/24 08/04/24 History (formulary)] Naproxen Sodium [Aleve] 440 mg PO BID 08/04/24 08/04/24 History [place]-3/Dha/Epa/Fish Oil [Fish Oil 1 cap PO DAILY 08/04/24 08/04/24 History 1,000 mg Softgel] Omeprazole [PriLOSEC] 20 mg PO Q2D 08/04/24 08/04/24 History Saw/Vit E/Sod Merary/Lyc/Beta/Pyg 1 tab PO DAILY 08/04/24 08/04/24 History [Prostate Health Caplet] amLODIPine [Norvasc] 10 mg PO DAILY 08/04/24 08/04/24 History Allergies Allergy/AdvReac Type Severity Reaction Status Date / Time Sulfa (Sulfonamide Allergy Anaphylaxis Verified 08/04/24 08:33 Antibiotics) Physical Exam Vitals: Vital Signs Temp Pulse Pulse Resp BP BP Pulse Ox 08/05/24 08:48 98.3 F 63 14 138/61 97 08/05/24 07:44 96 08/05/24 07:41 98.6 F 62 16 129/71 08/05/24 03:22 97.9 F 59 L 17 114/63 97 08/05/24 00:00 97.5 F L 57 L 17 150/81 99 08/04/24 23:04 98.2 F 63 16 122/70 97 08/04/24 19:59 58 L 18 127/84 95 08/04/24 17:37 58 L 18 139/76 96 08/04/24 11:34 59 L 18 123/59 96 Intake and Output 08/04/24 08/05/24 08/05/24 22:59 06:59 14:59 Other: Voiding Method Toilet Toilet Weight 84.1 kg PHYSICAL EXAM: VITAL SIGNS: [Reviewed] GENERAL: Pleasant 73-year-old male, well-developed, alert and oriented x 3, sitting up in bed, no acute distress. HEENT: Normocephalic, atraumatic conjunctivae normal. eyes normal. No scleral NECK: Supple, no JVD. CARDIOVASCULAR: S1, S2 regular. No murmur RESPIRATION: Unlabored, equal air entry , clear to auscultation. ABDOMEN: Soft, nondistended, nontender . No guarding. no masses palpable. No ascites, No hepatosplenomegaly.Bowel sounds heard. LEGS: No edema. no swelling, no calf tenderness. NERVOUS SYSTEM: Cranial N 2-12 grossly normal.No focal deficits. Strength and sensation grossly intact. Skin: Warm and dry, no rash. Results CBC & Chem 7: 08/05/24 06:56 08/05/24 06:56 Labs: Abnormal Lab Results - Last 24 Hours (Table) 08/05/24 Range/Units 06:56 Hgb 12.9 L (13.0-17.0) g/dL Hct 38.6 L (39.6-50.0) % Thrombosis Risk Factor Assmnt - Choose All That Apply Any of the Below Risk Factors Present?: Yes Each Factor Represents 1 point: Minor surgery planned, Obesity (BMI >25) Other Risk Factors: Yes Each Risk Factor Represents 2 Points: Age 61-74 years Other congenital or acquired thrombophilia - If yes, enter type in comment: No Thrombosis Risk Factor Assessment Total Risk Factor Score: 4 Thrombosis Risk Factor Assessment Level: Moderate Risk Assessment and Plan Assessment: Acute GI bleed, hematochezia, in a patient with history of diverticulosis ,takes NSAIDs regularly twice a day. Gastroesophageal reflux disease Hypertension Arthritis Prostate disorder, CT reporting prominent prostate gland 4.6 x 5.9. Plan: Continue on current medication regimen ,monitoring and symptomatic treatment. Maintain IV fluid hydration. PPI ordered for GI prophylaxis. Pneumatic compression sleeves for DVT prophylaxis. prep completed, scheduled for colonoscopy today with Dr Montalvo. Patient will be discharged today pending colonoscopy results, clearance and final DC recommendations per general surgery. Discharge Medication List Calcium Citrate/Vitamin D3 [Citracal + D Maximum Caplet] 1 tab PO W/SUPPER 08/04/24 [History] Fexofenadine HCl [Patria Allergy] 180 mg PO DAILY 08/04/24 [History] Multivitamins, Thera [Multivitamin (formulary)] 1 tab PO DAILY 08/04/24 [History] Naproxen Sodium [Aleve] 440 mg PO BID 08/04/24 [History] [place]-3/Dha/Epa/Fish Oil [Fish Oil 1,000 mg Softgel] 1 cap PO DAILY 08/04/24 [History] Omeprazole [PriLOSEC] 20 mg PO Q2D 08/04/24 [History] Saw/Vit E/Sod Merary/Lyc/Beta/Pyg [Prostate Health Caplet] 1 tab PO DAILY 08/04/24 [History] amLODIPine [Norvasc] 10 mg PO DAILY 08/04/24 [History] The impression and plan of care has been dictated as directed. : I performed a history and examination of this patient, discussed the same with the dictator. I agree with the dictator's note ,documented as a scribe. Any additional findings or plans will be noted.
[2024-08-05] MEDS: PANTOPRAZOLE 40 MG/10 ML VIAL IVP SCH (11:12)
[2024-08-05] MEDS ORDERED: PROPOFOL 10 MG/ML 20 ML VIAL IV ONE (13:49)
[2024-08-05] MEDS: IV FLUID CONTINUATION 1,000 ML IV ONE (14:02)
--- NOTE | 2024-08-05 14:27 | P.PCN ---
Date of Procedure: 08/05/24 Procedure(s) Performed: PREOPERATIVE DIAGNOSIS: GI bleed POSTOPERATIVE DIAGNOSIS: Mild gastritis, small hiatal hernia, descending colon polyp, diverticulosis PROCEDURE: 1. EGD with biopsy 2. Colonoscopy with snare polypectomy, and with anoscopy ANESTHESIA: [facility] [place] SURGEON: Stephan Montalvo M.D. SPECIMENS: Polyp, antrum ENDOSCOPIC PROCEDURE: The patient was on the endoscopy table in the left decubitus position. The Olympus gastroscope was inserted into the oropharynx and passed under direct visualization to the region of the third portion of the duodenum. From that point the scope was slowly withdrawn inspecting all surfaces carefully. There were no neoplastic inflammatory or polypoid lesions throughout the duodenum. The pylorus was widely patent. The stomach was carefully inspected. There was mild gastritis present. A biopsy of the antrum took place to rule out H. pylori. Retroflexion revealed a 1.5 cm hiatal hernia. The esophagus was then carefully examined. There were no neoplastic inflammatory or polypoid lesions throughout the visualized esophagus. The patient was kept on the endoscopy table in the left decubitus position. The Olympus colonoscope was inserted into the anus and passed under direct visualization to the base of the cecum. The appendiceal orifice was visualized. From that point the scope was slowly withdrawn inspecting all surfaces carefully. There were no neoplastic inflammatory or polypoid lesions throughout the cecum, ascending, and transverse colon. In the descending colon a small polyp was seen and removed using the snare with cautery technique. The remainder of the descending sigmoid and rectum were free of any neoplastic inflammatory or polypoid lesions. The patient has scattered diverticulosis throughout the colon without evidence of active bleeding. The anoscope was then utilized. The patient had a few small internal hemorrhoids but fairly normal. Digital rectal examination was normal. The patient was taken to the recovery room in stable condition per anesthesia guidelines. RECOMMENDATIONS: Await biopsy results. Source of bleeding most likely related to diverticulosis. Resume diet. May discharge if tolerates.
[2024-08-05 15:30] VITALS: BP 119/65; PULSE 58; RESP 16; TEMP 98.4
== END 2024-08-05 18:02 | disposition home or self-care (01) ==
LOC: EC 21:52 → 3SCARD 08-04 02:29
PROVIDERS: ADMIT Family Medicine; ATTEND Family Medicine
DX: K92.1 Melena (principal); K29.50 Unspecified chronic gastritis without bleeding; K63.5 Polyp of colon; K21.9 Gastro-esophageal reflux disease without esophagitis; K44.9 Diaphragmatic hernia without obstruction or gangrene; K57.30 Diverticulosis of large intestine without perforation or abscess without bleeding; N42.9 Disorder of prostate, unspecified; M19.90 Unspecified osteoarthritis, unspecified site; I10 Essential (primary) hypertension; Z79.899 Other long term (current) drug therapy; Z88.2 Allergy status to sulfonamides; Z79.1 Long term (current) use of non-steroidal anti-inflammatories (NSAID)
CPT/HCPCS: 96374; 99285; 36415; 86900; 86901; 88305; 80053; 80048; 83605; 85025; 85027 ×2; 85610; 85730; 86850; 82272; 88342; 88341; 74174; 45385; 43239; G0378 ×2; J2704; Q9967; J2470; 46600